=== PATIENT | male | born 1960 | race Caucasian/White ===

== ENCOUNTER 2017-01-14 20:23 | Emergency (ER) | payer MEDICARE, MEDICAID ==
[~2017-01-14] VITALS: Ht 167.6 cm; Wt 125.6 kg
[2017-01-14 23:08] LABS: Basophils # (auto) 0.1 uL; Basophils % (auto) 0.6 % (0.0-2.0); Eosinophils # (auto) 0.2 uL; Eosinophils % (auto) 2.4 % (0.0-7.0); Hematocrit 36.2 % (41.0-53.0); Hemoglobin 12.3 g/dL (13.5-17.5); Lymphocytes # (auto) 1.4 uL; Lymphocytes % (auto) 17.9 % (10.0-50.0); Mean Corpuscular Hemoglobin 27.5 pg (28.0-32.0); Mean Corpuscular Hgb Conc. 33.9 g/dL (32.0-36.0); Mean Corpuscular Volume 81.2 fL (80.0-100.0); Mean Platelet Volume 7.3 fL (6.9-10.8); Monocytes # (auto) 0.7 uL; Monocytes % (auto) 8.4 % (0.0-12.0); Neutrophils # (auto) 5.6 uL; Neutrophils % (auto) 70.7 % (37.0-80.0); Platelet Count (auto) 244 10^3/uL (140-450); White Blood Cell 7.9 10^3/uL (4.4-10.8)
[2017-01-14 23:28] LABS: Albumin 3.7 g/dL (3.4-5.0); Alkaline Phosphatase 96 U/L (45-117); Anion Gap 7 (5-15); Aspartate Aminotransferase 27 U/L (15-37); BUN/Creatinine Ratio 24.1; Blood Urea Nitrogen 19 mg/dL (7-18); Calcium 8.4 mg/dL (8.5-10.1); Carbon Dioxide 27 mmol/L (21-32); Chloride 104 mmol/L (98-107); GFR African American 131 mL/min; GFR Non-African American 109 mL/min; Glucose 154 mg/dL (74-106); Magnesium 2.3 mg/dL (1.6-2.6); Potassium 3.4 mmol/L (3.5-5.1); Sodium 138 mmol/L (136-145); Total Protein 8.3 g/dL (6.4-8.2)
[2017-01-15 00:48] LABS: Anisocytosis Slight; Ovalocytes MODERATE; Platelet Estimate Adequate
[2017-01-15 00:49] LABS: Tear Drop Cells FEW
[2017-01-15 01:24] LABS: INR 1.05 (0.9-1.15); Partial Thromboplastin Time 25.7 sec (22.64-33.71); Prothrombin Time 11.4 sec (9.37-12.3)
[2017-01-15] MEDS ORDERED: IOHEXOL 300 MG/ML 100ML BOTTLE IJ ONE (01:48)
[2017-01-15 05:34] VITALS: BP 119/71
== END 2017-01-15 06:55 | disposition home or self-care (01) ==
LOC: ER 20:25
DX: R07.89 Other chest pain (principal); R51 Headache; I11.0 Hypertensive heart disease with heart failure; I50.9 Heart failure, unspecified; J44.9 Chronic obstructive pulmonary disease, unspecified; Z86.73 Personal history of transient ischemic attack (TIA), and cerebral infarction without residual deficits
CPT/HCPCS: 36415; 70450; 70460; 71010; 80053; 83735; 84484; 85025; 85610; 85730; 93005; 99285; Q9967